=== PATIENT | male | born 1960 | race Caucasian/White ===

== ENCOUNTER 2021-10-14 12:31 | Outpatient (CLI) | payer BC | END 2021-10-14 12:32 | disposition home or self-care (01) | LOC: BICULT 12:31 | PROVIDERS: ATTEND Urology | DX: N50.82 Scrotal pain (principal); N50.3 Cyst of epididymis; N43.3 Hydrocele, unspecified | CPT/HCPCS: 76870; 93976 ==

== ENCOUNTER 2023-08-03 13:26 | Outpatient (CLI) | payer BC | END 2023-08-03 13:27 | disposition home or self-care (01) | LOC: LABBT 13:26 | PROVIDERS: ATTEND Urology | DX: Z01.810 Encounter for preprocedural cardiovascular examination (principal); N40.1 Benign prostatic hyperplasia with lower urinary tract symptoms | CPT/HCPCS: 93005; 93010 ==